=== PATIENT | female | born 1995 | race Caucasian/White ===

== ENCOUNTER 2023-06-17 00:36 | Emergency (ER) | payer OTHER, SELFPAY ==
[2023-06-17 00:52] VITALS: BP 109/75
--- NOTE | 2023-06-17 03:01 | ED.GENMED ---
History of Present Illness
General
Chief Complaint: Abdominal Symptoms
Source: patient and spouse
Exam Limitations: none
Time Seen by Provider: 06/17/23 02:33
Nursing documentation reviewed up to this point in time: agreed with
Travel History
Have you had any contact with someone who has COVID-19?: No
Do you have any symptoms of coronavirus? Fever > 100 degrees, chills, cough, shortness of breath, sore throat, loss of taste or smell, muscle aches, or headache?: No
History of Present Illness
History of Present Illness:
Pleasant 28-year-old female presents with diarrhea and vomiting. She states that around 8 PM she started to have bilious vomiting diarrhea. Denies fever, chills, chest pain, or shortness of breath. She is 22 weeks . This is her second
. The first was uncomplicated. She follows with [facility]. She states that her thus far has been normal. She does report that her son has similar symptoms and she feels she had this illness from him.
Review of Systems
Review of Systems
Allergies reviewed?: Yes
Other source history: family
All Other Systems: ROS reviewed and negative except as documented in HPI and ROS
ABD/GI: Reports nausea, vomiting and diarrhea
Psychiatric: Reports anxiety
Phy Exam
General Physical Exam
General Presentation: well appearing and no apparent distress
General Skin: warm and dry
General Habitus: normal
General Mental: alert
General Hydration: appears well hydrated
ENT Exam
ENT Exam: EOMI, pharynx normal, neck supple and normocephalic
Cardiovascular Exam
Cardiovascular Exam: regular rate/rhythm, no edema, no murmur and normal peripheral pulses
Pulmonary Exam
Pulmonary Exam: lungs clear, no respiratory distress, no rales, no crackles, no rhonchi, no stridor, no wheezing and no cough
Gastrointestinal Exam
Gastrointestinal Exam: normal bowel sounds, non tender, soft, no organomegaly, no pulsatile mass and non distended
Neurological Exam
Neurological Exam: alert, oriented x3, no motor deficits and speech normal
Musculoskeletal Exam
Musculoskeletal Exam: full ROM and no edema
Skin Exam
Skin Exam: normal color, warm/dry, no rash and no petechia
Psychiatric Exam
Psychiatric Exam: normal mood/affect
Course
Orders/Labs/Results
Orders:
Orders
06/17/23 02:34
Test Result ONCE
US Limited Urgent
Reason For Exam: abd pain, 22 weeks preg
06/17/23 03:04
0.9% Sodium Chloride 1000 ml [Nss] 1,000 ml IV BOLUS
Diphenhydramine [Benadryl] 12.5 mg IV NOW STA
Metoclopramide [Reglan] 5 mg IV NOW STA
06/17/23 03:33
Complete Blood Count/With Diff Urgent
Comprehensive Metabolic Panel Urgent
HCG, Serum Qualitative Screen Urgent
Lipase Urgent
06/17/23 03:43
Stool for Occult Blood Routine
06/17/23 03:45
Stool For WBC Urgent
ABDIAZIZ Source: Feces/Stool
Specimen Description:
Date Specimen was Collected: 06/17/23
Time Specimen was Collected: 03:44
06/17/23 05:48
0.9% Sodium Chloride 500 ml [Nss] 500 ml IV BOLUS
06/17/23 05:56
Urinalysis Reflex To Culture Urgent
Date Specimen was Collected: 06/17/23
Time Specimen was Collected: 05:52
Abnormal Lab Results
06/17/23 06/17/23
03:33 05:56
WBC 16.2 H 10^3/uL
(4.8-10.8)
MCH 32.8 H pg
(27.0-31.0)
MPV 10.8 H fL
(7.4-10.4)
Abs Immat Gran (auto) 0.1 H 10^3/uL
(0-0.05)
Absolute Neuts (auto) 15.5 H 10^3/uL
(1.4-6.5)
Absolute Lymphs (auto) 0.4 L 10^3/uL
(1.2-3.4)
Neutrophils % 95.7 H %
(42.2-75.2)
Lymphocytes % 2.3 L %
(20.5-51.1)
Monocytes % 1.4 L %
(1.7-9.3)
Sodium 134 L mmol/L
(135-145)
Carbon Dioxide 21 L mmol/L
(22-30)
Glucose 146 H mg/dl
(70-99)
Calcium 8.2 L mg/dl
(8.4-10.2)
Urine Ketones 3+ A
(Negative)
Urine Bilirubin 1+ A
(Negative)
06/17/23 03:33
06/17/23 03:33
Vital Signs
Initial and Last Documented VS:
Initial Vital Signs
Temp Pulse Resp BP Pulse Ox
98.1 F 82 29 109/75 97
06/17/23 00:52 06/17/23 00:52 06/17/23 00:52 06/17/23 00:52 06/17/23 00:52
Last Documented Vital Signs
Temp Pulse Resp BP Pulse Ox
98.9 F 72 20 100/65 96
06/17/23 07:00 06/17/23 07:00 06/17/23 07:00 06/17/23 07:00 06/17/23 07:00
*Critical Care Note
Total Time (30-74mins, 75-104mins- exclusive of procedures): Not Applicable
Update Note
Update Note:
06/17/2023 0549 AM: Patient is feeling much better but still feels a little 'dry '. Will give her another 500 cc of fluid. She is drinking fluid by mouth. I feel that this is viral in nature especially since she stated that her son has identical
symptoms. We discussed the ultrasound of her child. I gave her a copy of the ultrasound report. She will talk to her [facility]. She has not had any bloody stools while here.
ED Attending Note
-
Portions of this chart may have been created with voice recognition software.� Occasional wrong word or��sound alike� substitutions may have occurred due to the inherent limitations of voice recognition software.
Discharge Plan
Departure
Patient Disposition: Home (Routine Discharge)
Date of Disposition: 06/17/23
Time of Disposition: 06:20
Patient with high blood pressure during this ER visit?: No
Discharge Problem:
Gastroenteritis,
Instructions: Diarrhea in adolescents and adults, Nausea and Vomiting, Adult (DC), Abdominal Pain
Prescriptions:
New
metoclopramide HCl [Reglan] 10 mg tablet
10 mg PO Q8HPRN PRN (Reason: nausea and vomiting) Qty: 9 0RF
No Action
hydrocodone-acetaminophen 1 TABLET tablet
1 tab PO Q4HPRN PRN (Reason: pain) Qty: 7 0RF
hydrocodone-acetaminophen 1 TABLET tablet
1 tab PO Q4HPRN PRN (Reason: pain) Qty: 5 0RF
Referrals:
Shimon Ortiz CRNP [Family Provider] -
Activity Restrictions/Additional Instructions:
Your prescriptions were sent electronically to the pharmacy that you specified.
It was a pleasure meeting you and taking part in your care. We hope for your continued healing and wellness.
Please read discharge instructions in their entirety. However, they are for general education and may not describe your exact diagnosis at discharge. Information on your ER visit and medical conditions were discussed with you along with appropriate
follow up information...
If indicated, please take your medications as instructed and indicated on discharge paperwork.
Please schedule a follow up appointment as directed. Call to schedule an appointment
Please return to the emergency department with ANY change in, persisting, or worsening of symptoms. If any of your symptoms do not improve, or persist, or become more severe within 6-12 hours, please return to the emergency department for further
care.
Please return to the emergency department if you develop a headache, neck pain/stiffness, fever greater than 100.4F, chest pain, shortness of breath, persistent nausea, vomiting, slurred speech, difficulty walking, numbness/tingling, weakness, signs
of infection or any other symptoms that are worrisome to you.
If you have any questions or concerns please do not hesitate to call the Hospital at or E-mail me directly at [email or web address]
Interventions
Interventions:
*Risk Screen - Suicide Last Done: 06/17/23 04:42
*General Assessment Last Done: 06/17/23 04:41
*Neglect/Abuse Screening Last Done: 06/17/23 04:41
*Nursing Disposition Last Done: 06/17/23 07:00
QM-Qznrqb-Ecgpaszlke Assessment Last Done: 06/17/23 04:42
Discharge Date and Time
Discharge Date/Time: 06/17/23 07:01
[2023-06-17] MEDS: NSS 1000 IV (03:39)
[2023-06-17] MEDS: BENADRYL 12.5 MG IV (03:39)
[2023-06-17] MEDS: REGLAN 5 MG IV (03:41)
[2023-06-17 04:00] LABS: % Basophils 0.2 % (0-2); % Immature Granulocytes 0.4 % (0-0.5); % Lymphocytes 2.3 % (20.5-51.1); % Monocytes 1.4 % (1.7-9.3); % Neutrophils 95.7 % (42.2-75.2); Absolute Immature Granulocytes 0.1 10^3/uL (0-0.05); Absolute Lymphocytes 0.4 10^3/uL (1.2-3.4); Absolute Monocytes 0.2 10^3/uL (0.1-0.6); Absolute Neutrophils 15.5 10^3/uL (1.4-6.5); Hematocrit 40.3 % (37.0-47.0); Hemoglobin 14.6 g/dL (12.0-16.0); Mean Corp Hgb Conc. 36.2 g/dL (33.0-37.0); Mean Corpuscular Hgb 32.8 pg (27.0-31.0); Mean Corpuscular Volume 90.6 fL (81.0-99.0); Mean Platelet Volume 10.8 fL (7.4-10.4); Nucleated Red Blood Cells % 0 %; Platelet Count 227 10^3/uL (130-400); Red Blood Cell Count 4.45 10^6/uL (4.20-5.40); Red Cell Dist. Width 12.4 % (11.5-14.5); White Blood Cell Count 16.2 10^3/uL (4.8-10.8)
[2023-06-17 04:16] LABS: HCG, Serum Qualitative Screen Positive
[2023-06-17 04:24] LABS: ALT (SGPT) 14 U/L (0-35); AST (SGOT) 23 U/L (14-36); Albumin 3.7 g/dl (3.5-5.0); Alkaline Phosphatase 72 U/L (38-126); Blood Urea Nitrogen 13 mg/dl (7-17); Calcium 8.2 mg/dl (8.4-10.2); Carbon Dioxide 21 mmol/L (22-30); Chloride 106 mmol/L (98-107); Glucose 146 mg/dl (70-99); Lipase 63 U/L (23-300); Potassium 3.8 mmol/L (3.5-5.1); Sodium 134 mmol/L (135-145); Total Bilirubin 0.8 mg/dl (0.2-1.3); Total Protein 6.6 g/dl (6.3-8.2); eGFR > 60.00
[2023-06-17] MEDS: NSS 500 IV (06:00)
[2023-06-17 06:06] LABS: Urine Albumin Negative (Neg - Trace); Urine Bilirubin 1+ (Negative); Urine Character Clear (Clear); Urine Color Amber; Urine Glucose Negative (Negative); Urine Ketone 3+ (Negative); Urine Leukocyte Negative (Negative); Urine Nitrite Negative (Negative); Urine Occult Blood Negative (Negative); Urine Specific Gravity 1.025 (<1.030); Urine Urobilinogen Negative (Neg - 1+)
[2023-06-17 07:00] VITALS: BP 100/65
== END 2023-06-17 07:01 | disposition home or self-care (01) ==
LOC: EMR 00:36
PROVIDERS: EMERGENCY PHYSICIAN Student in an Organized Health Care Education/Training Program; FAMILY PHYSICIAN Registered Nurse
DX: O21.8 Other vomiting complicating pregnancy (principal); O26.892 Other specified pregnancy related conditions, second trimester; K52.9 Noninfective gastroenteritis and colitis, unspecified; Z3A.22 22 weeks gestation of pregnancy; R19.7 Diarrhea, unspecified
CPT/HCPCS: 99284; 96374; 96375; 96361; 76815; 80053; 81003; 83690; 84703; 85025; 89055

== ENCOUNTER 2023-06-25 10:27 | Emergency (ER) | payer OTHER, SELFPAY ==
[2023-06-25 10:42] VITALS: BP 103/71
--- NOTE | 2023-06-25 10:54 | ED.GENMED ---
History of Present Illness
General
Chief Complaint: Headache
Time Seen by Provider: 06/25/23 10:52
Travel History
Have you had any contact with someone who has COVID-19?: Yes
Comment: covid +
Do you have any symptoms of coronavirus? Fever > 100 degrees, chills, cough, shortness of breath, sore throat, loss of taste or smell, muscle aches, or headache?: Yes
Symptoms:: covid+
History of Present Illness
History of Present Illness:
28-year-old female, currently 24 weeks gestational age, presents to the emergency department for evaluation of a severe headache beginning early this morning. She developed URI symptoms earlier this week and tested positive for COVID,
headache began at approximately 3 AM today in association with waking up in the [place] to 10 to her toddler. She describes as a diffuse pressure that is worse when she leans forward, denies any photophobia, vision changes, neck pain, nausea, or
vomiting. Denies any extremity weakness or paresthesias. Has not take any medication for the headache this morning
Past History
Past History
ED Past Medical History: None
ED Past Surgical History: None
Social History
Personal:
Living: with family
Review of Systems
Review of Systems
Allergies reviewed?: Yes
All Other Systems: ROS reviewed and negative except as documented in HPI and ROS
Phy Exam
Physical Exam
Physical Exam:
GEN: Well appearing, NAD, WDWN
HEENT: Oral mucosa moist, no scleral icterus, no nasal congestion. Unrestricted neck range of motion, no meningismus
Cardiac: Regular rate
Lung: No respiratory distress, no tachypnea
MSK: No gross deformity or injuries
Skin: Good color, no pallor or jaundice, no rashes
Neuro: AO x3; CN II-XII grossly intact. BUE strength 5/5 in all weaver, sensation intact and symmetric. BLE strength 5/5 in all weaver, sensation intact and symmetric
Psych: Calm, cooperative
Course
Orders/Labs/Results
Orders:
Orders
06/25/23 11:18
Acetaminophen 1000MG/100Ml [Ofirmev] 1,000 mg in 100 ml IV ONCE
Acetaminophen IV Indication:: ED Narcotic Naive Pt-ONCE
Metoclopramide [Reglan] 10 mg IM NOW STA
06/25/23 11:39
Comprehensive Metabolic Panel Urgent
06/25/23 11:40
Complete Blood Count/With Diff Urgent
06/25/23 11:47
Metoclopramide [Reglan] 10 mg IV NOW STA
06/25/23 12:41
Urinalysis Reflex To Culture Urgent
Date Specimen was Collected: 06/25/23
Time Specimen was Collected: 12:15
Abnormal Lab Results
06/25/23 06/25/23
11:39 11:40
WBC 12.6 H 10^3/uL
(4.8-10.8)
RBC 3.58 L 10^6/uL
(4.20-5.40)
Hgb 11.7 L g/dL
(12.0-16.0)
Hct 32.3 L %
(37.0-47.0)
MCH 32.7 H pg
(27.0-31.0)
Abs Immat Gran (auto) 0.1 H 10^3/uL
(0-0.05)
Absolute Neuts (auto) 10.3 H 10^3/uL
(1.4-6.5)
Immature Gran % 0.6 H %
(0-0.5)
Neutrophils % 81.8 H %
(42.2-75.2)
Lymphocytes % 12.7 L %
(20.5-51.1)
Sodium 134 L mmol/L
(135-145)
Creatinine 0.4 L mg/dL
(0.6-1.0)
Glucose 119 H mg/dl
(70-99)
Total Protein 5.7 L g/dl
(6.3-8.2)
Albumin 2.9 L g/dl
(3.5-5.0)
06/25/23 11:40
06/25/23 11:39
Vital Signs
Initial and Last Documented VS:
Initial Vital Signs
Temp Pulse Resp BP Pulse Ox
98.3 F 86 16 103/71 97
06/25/23 10:42 06/25/23 10:42 06/25/23 10:42 06/25/23 10:42 06/25/23 10:42
Last Documented Vital Signs
Temp Pulse Resp BP Pulse Ox
98.3 F 71 18 98/65 97
06/25/23 10:42 06/25/23 13:00 06/25/23 13:00 06/25/23 13:00 06/25/23 13:00
MDM/Problems Addressed
MDM/Problems Addressed:
28-year-old female, currently 20 stational age, presents for acute headache. She is known COVID-positive. She has no focal neurologic deficits and no meningeal signs concerning for secondary etiology. Urinalysis is negative for proteinuria and
she is not hypertensive thus preeclampsia is ruled out. She was treated supportively with antimigraine medications and her symptoms essentially resolved. Recommend continued [id number] acetaminophen use, no indication for neuroimaging
*Critical Care Note
Total Time (30-74mins, 75-104mins- exclusive of procedures): Not Applicable
ED Attending Note
-
Portions of this chart may have been created with voice recognition software.� Occasional wrong word or��sound alike� substitutions may have occurred due to the inherent limitations of voice recognition software.
Discharge Plan
Departure
Patient Disposition: Home (Routine Discharge)
Date of Disposition: 06/25/23
Time of Disposition: 13:28
Patient with high blood pressure during this ER visit?: No
Discharge Problem:
Acute headache, COVID-19
Instructions: Headache, Adult (DC)
Prescriptions:
No Action
hydrocodone-acetaminophen 1 TABLET tablet
1 tab PO Q4HPRN PRN (Reason: pain) Qty: 7 0RF
hydrocodone-acetaminophen 1 TABLET tablet
1 tab PO Q4HPRN PRN (Reason: pain) Qty: 5 0RF
metoclopramide HCl [Reglan] 10 mg tablet
10 mg PO Q8HPRN PRN (Reason: nausea and vomiting) Qty: 9 0RF
Referrals:
Shimon Ortiz CRNP [Family Provider] -
Interventions
Interventions:
*Risk Screen - Suicide Last Done: 06/25/23 10:42
*General Assessment Last Done: 06/25/23 10:42
*Neglect/Abuse Screening Last Done: 06/25/23 10:42
ED- Fall Risk Assessment Last Done: 06/25/23 11:50
*ED COVID-19 Vaccine History Last Done: 06/25/23 11:27
*Nursing Disposition Last Done: 06/25/23 14:09
ED- Neurological Assessment Last Done: 06/25/23 11:50
Discharge Date and Time
Discharge Date/Time: 06/25/23 14:11
[2023-06-25 11:27] VITALS: BMI 20.7
[2023-06-25] MEDS: OFIRMEV 100 IV (11:35)
[2023-06-25] MEDS: REGLAN 10 MG IV (11:51)
[2023-06-25 11:58] LABS: % Basophils 0.2 % (0-2); % Eosinophils 0.6 % (0-6); % Immature Granulocytes 0.6 % (0-0.5); % Lymphocytes 12.7 % (20.5-51.1); % Monocytes 4.1 % (1.7-9.3); % Neutrophils 81.8 % (42.2-75.2); Absolute Eosinophils 0.1 10^3/uL (0-0.7); Absolute Immature Granulocytes 0.1 10^3/uL (0-0.05); Absolute Lymphocytes 1.6 10^3/uL (1.2-3.4); Absolute Monocytes 0.5 10^3/uL (0.1-0.6); Absolute Neutrophils 10.3 10^3/uL (1.4-6.5); Hematocrit 32.3 % (37.0-47.0); Hemoglobin 11.7 g/dL (12.0-16.0); Mean Corp Hgb Conc. 36.2 g/dL (33.0-37.0); Mean Corpuscular Hgb 32.7 pg (27.0-31.0); Mean Corpuscular Volume 90.2 fL (81.0-99.0); Mean Platelet Volume 10.1 fL (7.4-10.4); Nucleated Red Blood Cells % 0 %; Platelet Count 253 10^3/uL (130-400); Red Blood Cell Count 3.58 10^6/uL (4.20-5.40); Red Cell Dist. Width 12.2 % (11.5-14.5); White Blood Cell Count 12.6 10^3/uL (4.8-10.8)
[2023-06-25 12:11] LABS: ALT (SGPT) 14 U/L (0-35); AST (SGOT) 17 U/L (14-36); Albumin 2.9 g/dl (3.5-5.0); Alkaline Phosphatase 78 U/L (38-126); Blood Urea Nitrogen 8 mg/dl (7-17); Calcium 8.4 mg/dl (8.4-10.2); Carbon Dioxide 23 mmol/L (22-30); Chloride 102 mmol/L (98-107); Estimated Creatinine Clearance > 125 ml/min; Glucose 119 mg/dl (70-99); Potassium 3.7 mmol/L (3.5-5.1); Sodium 134 mmol/L (135-145); Total Bilirubin 0.4 mg/dl (0.2-1.3); Total Protein 5.7 g/dl (6.3-8.2); eGFR > 60.00
[2023-06-25 13:00] VITALS: BP 98/65
[2023-06-25 13:14] LABS: Urine Albumin Negative (Neg - Trace); Urine Bilirubin Negative (Negative); Urine Character Clear (Clear); Urine Color Yellow; Urine Glucose Negative (Negative); Urine Ketone Negative (Negative); Urine Leukocyte Negative (Negative); Urine Nitrite Negative (Negative); Urine Occult Blood Negative (Negative); Urine Urobilinogen Negative (Neg - 1+); Urine pH 6.5 (5.0-9.0)
== END 2023-06-25 14:11 | disposition home or self-care (01) ==
LOC: EMR 10:27
PROVIDERS: Physician Assistant; EMERGENCY PHYSICIAN Emergency Medicine; FAMILY PHYSICIAN Registered Nurse
DX: O98.512 Other viral diseases complicating pregnancy, second trimester (principal); U07.1 COVID-19; R51.9 Headache, unspecified; O26.892 Other specified pregnancy related conditions, second trimester; Z3A.24 24 weeks gestation of pregnancy
CPT/HCPCS: 99284; 96374; 96375; 80053; 81003; 85025